=== PATIENT | female | born 1950 | race Caucasian/White ===

== ENCOUNTER 2016-10-03 07:44 | Day surgery (SDC) | payer OTHER ==
[2016-09-25 10:08] VITALS: BMI 32.8
[2016-10-03] MEDS ORDERED: MIDAZOLAM HCL 2 MG/2 ML SINGLE DOSE VIAL ONE ×2 (11:06→11:52)
[2016-10-03] MEDS ORDERED: ceFAZolin SODIUM 1 GM VIAL ONE (11:22)
[2016-10-03] MEDS ORDERED: SODIUM CHLORIDE 0.9% P/F 10 ML VIAL IJ ONE (11:22)
[2016-10-03] MEDS ORDERED: ONDANSETRON 4 MG/2 ML VIAL ONE (11:39)
[2016-10-03] MEDS ORDERED: LIDOCAINE 1%-EPI 1:100,000 30 ML MDV IJ ONE (11:53)
[2016-10-03 12:59] VITALS: TEMP 98.2
[2016-10-03 13:32] VITALS: BP 120/64; PULSE 86
--- NOTE | 2016-10-04 01:00 | OP ---
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 PROCEDURE: Excision of left lower back soft tissue lipomatous neoplasia/ intermediate wound closure (8 cm). OPERATING SURGEON: Chip Verde MD ANESTHESIA: Carlos Manuel Velez M.D. (Local/MAC) HISTORY: A 66-year-old woman who recently had perceived some discomfort at the level of her left lower back. After reaching back, she was able to palpate a soft tissue mass. After bringing this to the attention of her PMD, she was referred for my evaluation. On evaluation, she had a golf ball-sized mass, which appeared to stem from the subcutaneous base. This was somewhat tethered in its posterior plane. She was taken to the operating room for excision under local anesthesia. Indications, alternatives, and possible complications reviewed. Consent obtained. DESCRIPTION OF PROCEDURE: With the patient in the prone position, and after IV sedation, the area was prepped and draped in the sterile fashion using chlorhexidine. Then, 1% lidocaine was used to infiltrate the soft tissues to create a field block in the intended level of excision. An 8-cm longitudinal incision was made directly over the mass and deepened into the patient's subcutaneous space. In the subcutaneous space, an irregular, partially lipomatous and somewhat irregular mass was easily noted. Staying outside the mass in the subcutaneous tissues, the mass was excised, freeing it superiorly and inferiorly, laterally and medially. The mass was followed into its deeper plane where it stemmed the full thickness of the subcutaneous space and appeared to violate a 1-cm region of the underlying fascia of the musculature. The subfascial extension appeared to originate in the subcutaneous space, not originating in the subfascial plane. The fascia was incised for a small distance and continuing to use sharp dissection, the mass was ultimately freed and delivered without difficulty. After irrigation and adequate hemostasis, the wound was closed in layers. Small defect in the fascia was closed using interrupted 3-0 Vicryl sutures. The subcutaneous tissues were approximated using interrupted 3-0 chromic sutures. The subcuticular layer was approximated with interrupted 4-0 Biosyn sutures. The skin was closed using a continuous 4-0 nylon suture. Bacitracin and dressing was applied. Procedure terminated. Needle and instrument count correct. Estimated blood loss minimal. Specimens: Soft tissue mass from the left lower back (final pathology pending). Drains: None. Patient tolerated the procedure. The procedure was terminated. CHIP VERDE M.D. [id number] cc: Joaquin Leyva MD MTDD
--- NOTE | 2016-10-08 15:18 | PREOP ---
DATE OF ADMISSION 10/03/2016 The patient to be admitted through the [facility] on 10/03/16. HISTORY OF PRESENT ILLNESS: A 66-year-old woman admitted through the [facility] for excision of a palpable soft tissue mass at the left lower back of unknown duration. The patient only recently developed some low back discomfort. After palpating at that level, she was able to find a soft tissue mass measuring approximately the size of a golf ball. After bringing that to the attention of her physician, she was referred for my evaluation. PAST MEDICAL HISTORY: Nil. No history of hypertension; heart disease; diabetes ; respiratory, renal or hepatic insufficiency. PAST SURGICAL HISTORY: Significant for knee replacements as well as sleeve gastrectomy for weight management under the care of Frandy Lance MD. ALLERGIES: None known. REGULAR MEDICATIONS: Vitamin D, Tylenol, Percocet. SOCIAL HISTORY: Negative for tobacco. The patient did smoke up until 7 years ago. Occasional alcohol. FAMILY HISTORY: Mother with history of COPD. Siblings: One with diabetes. REVIEW OF SYSTEMS: Nil. PHYSICAL EXAMINATION: The patient examined in the prone position. There is a 3 cm soft tissue mass of the left lower back, which appears to be confined to the subcutaneous base but is somewhat fixed in its deeper plane. There are no satellite lesions or regional lymphadenopathy. IMPRESSION: Soft tissue mass, left lower back. PLAN: Excision soft tissue mass, left lower back under local anesthesia with sedation. Indications, alternatives, possible complications reviewed. Consent obtained. The patient will be seen preoperatively by Dr. Joaquin Leyva. Please refer to his notes for those medical details. TONE DOUGHERTY M.D. [id number] CC: Joaquin Leyva MD MTDD
--- NOTE | 2016-10-09 16:28 | PATH ---
Surgical Pathology Report Patient Name: PORSCHE TEIXEIRA [facility]. Rec. #: [id number] /Age/Gender: 1950 (Age: 66) / F Account: [id number] Location: [facility] Taken: 10/03/2016 Received: 10/03/2016 Reported: 10/09/2016 Physicians: Jeff Thompson M.D. Specimen(s) Received SOFT TISSUE MASS LEFT LOWER BACK Clinical History Soft tissue neoplasia left lower back Final Diagnosis SOFT TISSUE, LEFT LOW BACK, MASS, EXCISION: MARGINAL ZONE LYMPHOMA (SEE COMMENT). Comment: This case was seen in consultation with hematopathology service at [place], [place] ([id number], Dr. Casper). The diagnosis above reflect the consultation opinion. The specimen consists of fragments of lymphoid tissue and attached adipose tissue; focal ossification is noted. Occasional follicles with germinal center formation are present. The predominant interfollicular component is medium sized lymphocytes with oval to slightly irregular nuclei, variably condensed chromatin, small nucleoli and scant to moderate pale cytoplasm. Rare intermixed larger cells are also present. Immunostains demonstrate B-cell predominance without co-expression of CD5, BCL1, BCL6 or CD10. The germinal centers and negative for BCL2, and are probably reactive. Immunohistochemical stains show the following: CD20 and PAX5 immunostains highlight B cells; CD3 and CD5 highlight T cells; CD43 highlight plasma cells and T cells; CD21 and CD23 highlight follicular dendritic cells; CD10 and BCL6 are positive in germinal centers; BCL2 is negative in germinal centers; BCL1 is negative; Ae1/Ae3 and ANNETTE are negative; Wall URMILA is positive in plasma cells and Lambda (URMILA) is positive in very rare plasma cells; Ki67: subset (5-10%) positive; germinal centers positive. Electronically Signed Liam Spain M.D. Gross Description Received in formalin, labeled "soft tissue mass left lower back" is a 6.0 x 4.0 x 4.0 cm unoriented portion of yellow, lobulated adipose tissue. Sectioning reveals a 5.2 x 2.6 x 2.2 cm homogeneous welch, well-circumscribed fleshy mass focally abutting the radial margin. No areas of hemorrhage or necrosis are identified. The specimen displays focal smaller nodules surrounding the main mass. The specimen is inked black and serially sectioned. Marine [employer] sections are submitted in 6 cassettes as follows: 1-2-one full face bisected section of mass; 2-2-snwieioqns sections of mass with radial margin. 10/04/201610/04/2016
== END 2016-10-03 13:33 | disposition home or self-care (01) ==
LOC: FASU 07:44
PROVIDERS: ATTEND Surgery
PROC: 0JB70ZZ Excision of Back Subcutaneous Tissue and Fascia, Open Approach (ICD-10-PCS; principal; 2016-10-03 09:30)
DX: D21.6 Benign neoplasm of connective and other soft tissue of trunk, unspecified (principal); C88.4 Extranodal marginal zone B-cell lymphoma of mucosa-associated lymphoid tissue [MALT-lymphoma]
CPT/HCPCS: 88307-TC

== ENCOUNTER → 2021-08-09 | Day surgery (SDC) | payer MEDICARE, OTHER | END | disposition home or self-care (01) | LOC: JRADUS-SUR 14:32 | PROVIDERS: ATTEND Specialist | PROC: 0H9T3ZX Drainage of Right Breast, Percutaneous Approach, Diagnostic (ICD-10-PCS; principal; 2021-08-09) | DX: C85.80 Other specified types of non-Hodgkin lymphoma, unspecified site (principal) | CPT/HCPCS: 19083; 77065-TC; 87899; 88305-TC; A4648 ==

== ENCOUNTER 2021-11-24 05:46 | Day surgery (SDC) | payer MEDICARE, OTHER ==
[2021-11-23 15:45] VITALS: BMI 35.0
[2021-11-24] MEDS ORDERED: MIDAZOLAM HCL 2 MG/2 ML SINGLE DOSE VIAL IVPUSH ONE ×2 (10:45→11:00)
[2021-11-24] MEDS ORDERED: FENTANYL CITRATE/PF 50 MCG/ML VIAL IVPUSH ONE ×2 (10:45→11:00)
[2021-11-24 13:27] VITALS: TEMP 98
[2021-11-24 13:39] VITALS: BP 130/60; PULSE 74
== END 2021-11-24 13:30 | disposition home or self-care (01) ==
LOC: JRADIR 05:46
PROVIDERS: ATTEND Internal Medicine Hematology & Oncology
PROC: 07DR3ZX Extraction of Iliac Bone Marrow, Percutaneous Approach, Diagnostic (ICD-10-PCS; principal; 2021-11-24)
PROC: BR2 Imaging, Axial Skeleton, Except Skull and Facial Bones, Computerized Tomography (CT Scan) (ICD-10-PCS; 2021-11-24)
DX: C85.80 Other specified types of non-Hodgkin lymphoma, unspecified site (principal); D75.89 Other specified diseases of blood and blood-forming organs
CPT/HCPCS: 20225; 77012-TC; 88300-TC